=== PATIENT | male | born 1970 | race African-American/Black ===

== ENCOUNTER 2016-07-21 22:12 | Emergency (ER) | payer OTHER ==
[2016-07-22 00:52] LABS: Hematocrit 42 % (42-52); Mean Corpuscular HGB Conc 33 g/dl (31-36); Mean Corpuscular Hemoglobin 31 pg (27-31); Mean Corpuscular Volume 94 fL (80-94); Mean Platelet Volume 9 um3 (7.4-10.4); Red Cell Distribution Width 13 % (10.5-15); White Blood Count 13.8 10^3/ul (3.5-10.8)
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
[2016-07-22 01:03] LABS: BUN/Creatinine Ratio 15.6 (8-20); Calcium 8.9 mg/dL (8.6-10.3); EGFR African American 175.5 (>60); EGFR Non-African American 136.5 (>60); Potassium 3.7 mmol/L (3.5-5.0)
[2016-07-22 01:18] VITALS: BP 136/70
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
--- NOTE | 2016-07-22 07:00 | RAD ---
INDICATION: Bilateral rib injury. TECHNIQUE: 7 views of both ribs were obtained. FINDINGS: There is a fracture of the lateral aspect of the right eighth rib. No other fractures are seen. IMPRESSION: FRACTURE OF THE LATERAL RIGHT EIGHTH RIB.
== END 2016-07-22 01:19 | disposition short-term general hospital (02) ==
LOC: ED 22:12
DX: S02.32XA Fracture of orbital floor, left side, initial encounter for closed fracture (principal); S02.402A Zygomatic fracture, unspecified side, initial encounter for closed fracture; W10.9XXA Fall (on) (from) unspecified stairs and steps, initial encounter; Y93.9 Activity, unspecified; Y92.9 Unspecified place or not applicable; R60.0 Localized edema; F17.210 Nicotine dependence, cigarettes, uncomplicated; F19.90 Other psychoactive substance use, unspecified, uncomplicated
CPT/HCPCS: 36415; 70450; 70486; 71110; 80048; 80320; 85025; 99283; G0480

== ENCOUNTER → 2016-10-23 15:58 | Emergency (ER) | payer SELFPAY ==
[~2016-10-23 15:58] MED LIST: HYDROcodone/ACETAMIN 5-325 MG* 1 TAB PO ONE
[2016-10-23 16:02] VITALS: BP 111/68
--- NOTE | 2016-10-23 17:03 | ED ---
Lower Extremity - HPI Summary HPI Summary: Pt here w/ Rt knee pain and swelling x 1 week. Started while at work one day - on his feet at [employer] all shift. Tried icing, elevating and resting over the weekend w/o much relief. Reports he took 7 tablets of ibuprofen this morning w/ o relief of pain. No previous injury/surgery here. Denies numbness, tingling, weakness and no fever, chills, N/V/D. He can move his hip and ankle w/o difficulty. Pain is worse w/ flexion and weight bearing. No h/o gout and denies lifestyle habits that may cause this. - History of Current Complaint Chief Complaint: EDExtremityLower Stated Complaint: RT KNEE PAIN Time Seen by Provider: 10/23/16 16:20 Hx Obtained From: Patient Pain Intensity: 10 - Allergies/Home Medications Allergies/Adverse Reactions: Allergies Allergy/AdvReac Type Severity Reaction Status Date / Time No Known Allergies Allergy Verified 10/23/16 16:01 PMH/Surg Hx/FS Hx/Imm Hx Previously Healthy: Yes Endocrine/Hematology History: Denies: Hx Anticoagulant Therapy, Hx Blood Disorders, Hx Diabetes, Hx Thyroid Disease, Hx Unexplained Bleeding Cardiovascular History: Denies: Hx Hypertension Respiratory History: Denies: Hx Asthma, Hx Chronic Obstructive Pulmonary Disease (COPD) GI History: Denies: Hx Ulcer Musculoskeletal History: Denies: Hx Arthritis Neurological History: Denies: Other Neuro Impairments/Disorders - lt ocipital head ache for 1 week Psychiatric History: Reports: Hx of Violent Episodes Against Others, Hx Substance Abuse - cocaine, marijuana Denies: Hx Eating Disorder Infectious Disease History: Denies: Hx Clostridium Difficile, Hx Hepatitis, Hx Human Immunodeficiency Virus (HIV), Hx of Known/Suspected MRSA, Hx Shingles, Hx Tuberculosis, Hx Known/ Suspected VRE, Hx Known/Suspected VRSA, History Other Infectious Disease, Traveled Outside the [place] in Last 30 Days - Family History Known Family History: Positive: Other - Family history of alcohol abuse. - Social History Occupation: Employed Part-time - [employer] Lives: With Family - roommate Alcohol Use: Weekly Hx Substance Use: Yes Substance Use Type: Reports: Cocaine - did not report this today, Marijuana - recreationally Hx Tobacco Use: Yes Smoking Status (MU): Current Every Day Smoker Review of Systems Constitutional: Negative Negative: Fever, Chills, Fatigue Negative: Chest Pain Negative: Shortness Of Breath Negative: Vomiting, Nausea Positive: no symptoms reported Musculoskeletal: Other - see HPI Skin: Negative Negative: Rash, Bruising Neurological: Negative Negative: Weakness, Paresthesia, Numbness Psychological: Normal All Other Systems Reviewed And Are Negative: Yes Physical Exam Triage Information Reviewed: Yes Vital Signs On Initial Exam: Initial Vitals Temp Pulse Resp BP Pulse Ox 96.7 F 84 14 111/68 97 10/23/16 16:01 10/23/16 16:01 10/23/16 16:01 10/23/16 16:01 10/23/16 16:01 Vital Signs Reviewed: Yes Appearance: Positive: Well-Appearing, No Pain Distress - sleeping on stretcher - had to wake pt - he is startle d upon waking and reports " I'm in pain", Well- Nourished Skin: Positive: Warm, Dry - no erythema, no ecchymosis, no fever to touch Rt knee which is edematous compared to Lt - he does not have exquisite tenderness Head/Face: Positive: Normal Head/Face Inspection Eyes: Positive: EOMI ENT: Positive: Hearing grossly normal Respiratory/Lung Sounds: Positive: Breath Sounds Present Cardiovascular: Positive: Normal, RRR, Pulses are Symmetrical in both Upper and Lower Extremities Musculoskeletal: Positive: Limited @ - Rt knee limited flexion d/t pain/ swelling - modified special tests - pain w/ varus and valgus stress tests - gaurded bettina, could not perform ant/post drawer d/t inability to flex that far, modified Albina w/o pain/clicking; Lt knee w/ laxity in general; Ankle and hip w/ FROM w/o pain or restriction Neurological: Positive: Normal, Sensory/Motor Intact, Alert, Oriented to Person Place, Time, CN Intact II-III Psychiatric: Positive: Normal Diagnostics - Vital Signs Vital Signs Temp Pulse Resp BP Pulse Ox 10/23/16 16:01 96.7 F 84 14 111/68 97 - Laboratory Lab Statement: Any lab studies that have been ordered have been reviewed, and results considered in the medical decision making process. Re-Evaluation - Re-Evaluation First Eval Change: Improved Lower Extremity Course/Dx - Course Course Of Treatment: The source of pt's knee effusion is not definitive today however there is a possibilty he may have torn a ligament or cartilage triggering swelling. Pt does not present w/ any s/sx of infection/gout so labs were not ordered today. Reviewed danger s/sx of when to return to ED. Otherwise , f/u w/ ortho. - Diagnoses Provider Diagnoses: Effusion, right knee Discharge - Discharge Plan Condition: Stable Disposition: HOME Prescriptions: HYDROcodone/ACETAMIN 5-325 MG* [[place] 5-325 TAB*] 1 tab PO Q6H PRN #20 tab MDD 4 PRN Reason: Pain Ibuprofen TAB* [Motrin TAB* 800 MG] 800 mg PO Q8HR #20 tab Patient Education Materials: Swollen Knee Joint (ED), Crutch Instructions (ED) , Knee Immobilizer (ED) Referrals: Hemanth Sánchez MD [Medical Doctor] -
--- NOTE | 2016-10-23 17:57 | RAD ---
INDICATION: Right knee pain and swelling. TECHNIQUE: 4 views of the right knee were obtained. FINDINGS: The bones are normal alignment. There is a large joint effusion present. No fracture is seen. Joint spaces appear maintained. There is mild osteoarthritic change in the patellofemoral compartment. IMPRESSION: LARGE JOINT EFFUSION.
== END | disposition home or self-care (01) ==
LOC: ED 15:58
DX: M25.461 Effusion, right knee (principal); M25.561 Pain in right knee; F14.90 Cocaine use, unspecified, uncomplicated; F12.90 Cannabis use, unspecified, uncomplicated; F17.210 Nicotine dependence, cigarettes, uncomplicated
CPT/HCPCS: 99282

== ENCOUNTER 2016-12-04 11:31 | Emergency (ER) | payer MEDICAID ==
[2016-12-04] MEDS ORDERED: Ketorolac INJ* 30 MG/ML 1 ML VIAL IV PUSH ONE (12:15)
--- NOTE | 2016-12-04 12:23 | ED ---
Lower Extremity - HPI Summary HPI Summary: Pt here w/ return of Rt knee pain and swelling x 2 days. No acute injury. Denies fever, chills, N/V/D, dysuria, visual change. Worse w/ movement and weight bearing. Although better as rest, still has constant pain. Has not tried anything for pain yet. Was seen here last month - XR report w/o acute findings (mild arthritic change, effusion) and dx'd w/ effusion of unknown origin although arthritis flair up vs. ligament/cartigale strain were suspected given events leading up to incident. He was given short course of norco as he had already tried many ibuprofen pills w/o relief. He was aslo advised to f/u w/ orthopedics which he did not. Admits he just started with [facility] for ETOH and marijuana. Denies h/o opioid abuse. Requesting norco for pain today. - History of Current Complaint Chief Complaint: EDExtremityLower Stated Complaint: RT KNEE PAIN/SWELLING Time Seen by Provider: 12/04/16 11:56 Hx Obtained From: Patient Pain Intensity: 10 - Allergies/Home Medications Allergies/Adverse Reactions: Allergies Allergy/AdvReac Type Severity Reaction Status Date / Time No Known Allergies Allergy Verified 10/23/16 16:01 PMH/Surg Hx/FS Hx/Imm Hx Previously Healthy: Yes Endocrine/Hematology History: Denies: Hx Anticoagulant Therapy, Hx Blood Disorders, Hx Diabetes, Hx Thyroid Disease, Hx Unexplained Bleeding, Autoimmune Disease Cardiovascular History: Denies: Hx Hypertension Respiratory History: Denies: Hx Asthma, Hx Chronic Obstructive Pulmonary Disease (COPD) GI History: Denies: Hx Ulcer Musculoskeletal History: Reports: Hx Arthritis - Rt knee (mild OA) Denies: Hx Rheumatoid Arthritis, Hx Back Problems, Hx Bursitis, Hx Fibromyalgia, Hx Gout, Hx Orthopedic Injury, Hx of Fracture(s), Hx Joint Replacement Neurological History: Denies: Other Neuro Impairments/Disorders - lt ocipital head ache for 1 week Psychiatric History: Reports: Hx of Violent Episodes Against Others, Hx Substance Abuse - cocaine, marijuana Denies: Hx Eating Disorder Infectious Disease History: No Infectious Disease History: Denies: Hx Clostridium Difficile, Hx Hepatitis, Hx Human Immunodeficiency Virus (HIV), Hx of Known/Suspected MRSA, Hx Shingles, Hx Tuberculosis, Hx Known/ Suspected VRE, Hx Known/Suspected VRSA, History Other Infectious Disease, Traveled Outside the [place] in Last 30 Days - Family History Known Family History: Positive: Other - Family history of alcohol abuse. Family History: Family history of alcohol abuse. - Social History Lives: Nursing Home - [facility] Alcohol Use: Occasionally Alcohol Amount: last drank 1 week ago Hx Substance Use: Yes Substance Use Type: Reports: Cocaine, Marijuana - currently in [facility] for marijuana abuse Substance Use Comment - Amount & Last Used: hx marijuana Hx Tobacco Use: Yes Smoking Status (MU): Current Every Day Smoker Review of Systems Constitutional: Negative Negative: Fever, Chills, Fatigue Eyes: Negative Negative: Photophobia, Blurred Vision, Diplopia ENT: Negative Negative: Sore Throat Cardiovascular: Negative Negative: Chest Pain Respiratory: Negative Negative: Shortness Of Breath Gastrointestinal: Negative Negative: Vomiting Positive: no symptoms reported Musculoskeletal: Other - see HPI Skin: Negative Negative: Rash, Bruising Neurological: Negative Negative: Weakness, Paresthesia, Numbness Positive: Anxious All Other Systems Reviewed And Are Negative: Yes Physical Exam Triage Information Reviewed: Yes Vital Signs On Initial Exam: Initial Vitals Temp Pulse Resp BP Pulse Ox 98.2 F 78 17 124/81 100 12/04/16 11:32 12/04/16 11:32 12/04/16 11:32 12/04/16 11:32 12/04/16 11:32 Vital Signs Reviewed: Yes Appearance: Positive: Well-Appearing, Pain Distress Skin: Positive: Warm, Dry - no erythema, no ecchymosis, no streaking, no fever to touch Head/Face: Positive: Normal Head/Face Inspection Eyes: Positive: EOMI, Conjunctiva Clear ENT: Positive: Hearing grossly normal Respiratory/Lung Sounds: Positive: Breath Sounds Present Cardiovascular: Positive: RRR, Pulses are Symmetrical in both Upper and Lower Extremities Musculoskeletal: Positive: Strength/ROM Intact - Rt, Limited @ - Rt knee limited d/t pain; no laxity appreciated Neurological: Positive: Normal, Sensory/Motor Intact, Alert, Oriented to Person Place, Time, CN Intact II-III Psychiatric: Positive: Anxious - [place] Coma Scale Coma Scale Total: 15 Diagnostics - Vital Signs Vital Signs Temp Pulse Resp BP Pulse Ox 12/04/16 11:32 98.2 F 78 17 124/81 100 - Laboratory Result Diagrams: 12/04/16 12:35 12/04/16 12:35 Lab Statement: Any lab studies that have been ordered have been reviewed, and results considered in the medical decision making process. Lower Extremity Course/Dx - Course Course Of Treatment: Pt here w/ return of Rt knee pain and swelling. No clinical or labratory signs of infection. Appears to be having an arthritis flair up w/ possible swelling d/t this and/or injury to ligament/cartilage ( exam gaurded d/t pain). He was advised to f/u w/ orthoepdics last time, but reports he felt better so did not follow-up. Advise again today, he call ortho to schedule an appoinmtent for further w/u. Crutches and knee immobilizer provided today to prevent worsening of injury. - Diagnoses Provider Diagnoses: Right knee pain Discharge - Discharge Plan Condition: Stable Disposition: HOME Prescriptions: Meloxicam 7.5 mg PO DAILY WITH MEAL #14 tab Patient Education Materials: Knee Pain (ED), Swollen Joint (ED) Referrals: Salvador Rangel MD [Medical Doctor] - Additional Instructions: The definitive cause of your knee pain was not identified again today. However, you do not appear to have infection or gout. It is again suspected you are having an arthritis flair up and/or injury of internal connective tissue causing swelling and pain. Rest, elevate and compress with DOMINICK wrap and immobilizer Non-weight bearing until cleared by orthopedics You may use heat in the morning to aid in stretching - you may also ice for pain , swelling Take meloxicam, a pain medication for your current condition, daily as directed. Do not take with other NSAID's (ie. advil, ibuprofen, aleve, naproxen) Follow-up with orthopedics this week - call today to schedule an appointment. *If you develop fever, chills, nausea, vomiting, numbness, weakness, return to ED
[2016-12-04 12:44] LABS: Hematocrit 42 % (42-52); Hemoglobin 14.4 g/dl (14.0-18.0); Mean Corpuscular HGB Conc 35 g/dl (31-36); Mean Corpuscular Hemoglobin 33 pg (27-31); Mean Corpuscular Volume 96 fL (80-94); Mean Platelet Volume 8 um3 (7.4-10.4); Red Blood Count 4.34 10^6/ul (4.0-5.4); Red Cell Distribution Width 13 % (10.5-15); White Blood Count 8.3 10^3/ul (3.5-10.8)
[2016-12-04 12:58] LABS: Albumin 3.9 g/dL (3.2-5.2); BUN/Creatinine Ratio 14.9 (8-20); C Reactive Protein 3.48 mg/L (< 5.00); Calcium 9.3 mg/dL (8.6-10.3); EGFR African American 147.8 (>60); EGFR Non-African American 114.9 (>60); Potassium 3.9 mmol/L (3.5-5.0); Total Bilirubin 0.7 mg/dL (0.2-1.0); Total Protein 6.9 g/dL (6.4-8.9); Uric Acid 7.5 mg/dL (4.4-7.6)
[2016-12-04 13:23] VITALS: BP 121/69
== END 2016-12-04 13:28 | disposition home or self-care (01) ==
LOC: ED 11:31
DX: M25.561 Pain in right knee (principal)
CPT/HCPCS: 36415; 80053; 83605; 84550; 85025; 86140; 99282; J1885

== ENCOUNTER 2016-12-09 12:32 | Emergency (ER) | payer MEDICAID ==
[2016-12-09] MEDS ORDERED: traMADol TAB* 50 MG PO ONE (13:19)
--- NOTE | 2016-12-09 13:47 | RAD ---
INDICATION: Pain and swelling. COMPARISON: None TECHNIQUE: Duplex interrogation of the right lowerextremity was performed. FINDINGS: Deep veins: The common femoral, great saphenous, profunda femoris, proximal, mid, and distal deep femoral, popliteal, posterior tibial, and peroneal veins are patent. There is normal compressibility, augmentation, and phasic flow. Superficial veins: There are no findings of superficial thrombophlebitis. Popliteal fossa:There is no evidence of a popliteal cyst. Soft tissues: There is a small amount of edema in the popliteal fossa but no localized fluid collection to suggest a popliteal cyst. IMPRESSION: No evidence of deep venous thrombosis
[2016-12-09 14:09] LABS: Hematocrit 44 % (42-52); Hemoglobin 15.2 g/dl (14.0-18.0); Mean Corpuscular HGB Conc 34 g/dl (31-36); Mean Corpuscular Hemoglobin 33 pg (27-31); Mean Corpuscular Volume 97 fL (80-94); Mean Platelet Volume 9 um3 (7.4-10.4); Red Cell Distribution Width 14 % (10.5-15); White Blood Count 7.9 10^3/ul (3.5-10.8)
[2016-12-09 14:33] LABS: Albumin 4.1 g/dL (3.2-5.2); BUN/Creatinine Ratio 13.7 (8-20); C Reactive Protein 10.46 mg/L (< 5.00); Calcium 9.5 mg/dL (8.6-10.3); EGFR African American 150.1 (>60); EGFR Non-African American 116.7 (>60); Globulin 3.4 g/dL (2-4); Potassium 4.6 mmol/L (3.5-5.0); Total Bilirubin 0.4 mg/dL (0.2-1.0); Total Protein 7.5 g/dL (6.4-8.9); Uric Acid 5.3 mg/dL (4.4-7.6)
[2016-12-09 14:50] LABS: Erythrocyte Sed Rate 10 mm/Hr (0-14)
[2016-12-09 15:35] VITALS: BP 122/77
[2016-12-12 23:48] LABS: B garinii/B afzelii PCR Negative (Negative); B mayonii PCR Negative (Negative)
--- NOTE | 2016-12-15 12:32 | ED ---
Param Betancur Nilda, scribed for Dawit Martinez MD on 12/09/16 at 1458 . Lower Extremity - HPI Summary HPI Summary: Patient is a 46 y.o. M presenting to [facility] with a chief complaint of severe chronic R knee and calf pain and swelling that has been present for two months but was exacerbated yesterday. Pain is rated 8/10 severity. Symptoms are aggravated by palpation and alleviated by nothing. Patient reports swollen lymph nodes. He denies L knee swelling. Patient found a tick on his RLE a few months ago. - History of Current Complaint Chief Complaint: EDExtremityLower Stated Complaint: RT KNEE PAIN Time Seen by Provider: 12/09/16 13:13 Hx Obtained From: Patient Onset of Pain: Days Onset/Duration: Still Present - Pain and swelling of right knee present for two month but exacerbated yesterday. Severity Currently: Severe Pain Intensity: 8 Pain Scale Used: 0-10 Numeric Timing: Constant Location: Is Discrete @ - Right Knee and calf Associated Signs And Symptoms: Positive: Swelling Aggravating Factor(s): Other - palpation Alleviating Factor(s): Nothing - Allergies/Home Medications Allergies/Adverse Reactions: Allergies Allergy/AdvReac Type Severity Reaction Status Date / Time No Known Allergies Allergy Verified 10/23/16 16:01 PMH/Surg Hx/FS Hx/Imm Hx Endocrine/Hematology History: Denies: Hx Anticoagulant Therapy, Hx Blood Disorders, Hx Diabetes, Hx Thyroid Disease, Hx Unexplained Bleeding Cardiovascular History: Denies: Hx Hypertension Respiratory History: Denies: Hx Asthma, Hx Chronic Obstructive Pulmonary Disease (COPD) GI History: Denies: Hx Ulcer Musculoskeletal History: Reports: Hx Arthritis - Rt knee (mild OA) Denies: Hx Rheumatoid Arthritis, Hx Back Problems, Hx Bursitis, Hx Fibromyalgia, Hx Gout, Hx Orthopedic Injury Neurological History: Denies: Other Neuro Impairments/Disorders - lt ocipital head ache for 1 week Psychiatric History: Reports: Hx of Violent Episodes Against Others, Hx Substance Abuse - cocaine, marijuana Denies: Hx Eating Disorder Infectious Disease History: No Infectious Disease History: Denies: Hx Clostridium Difficile, Hx Hepatitis, Hx Human Immunodeficiency Virus (HIV), Hx of Known/Suspected MRSA, Hx Shingles, Hx Tuberculosis, Hx Known/ Suspected VRE, Hx Known/Suspected VRSA, History Other Infectious Disease, Traveled Outside the [place] in Last 30 Days - Family History Known Family History: Positive: Other - Family history of alcohol abuse. Negative: Hypertension, Diabetes Family History: Family history of alcohol abuse. - Social History Alcohol Use: Occasionally Alcohol Amount: last drank 1 week ago Hx Substance Use: Yes Substance Use Type: Reports: Cocaine, Marijuana - currently in [facility] for marijuana abuse Substance Use Comment - Amount & Last Used: hx marijuana Hx Tobacco Use: Yes Smoking Status (MU): Current Every Day Smoker Review of Systems Positive: Other - Swollen neck lymph nodes. Negative: Fever, Chills Negative: Erythema Negative: Sore Throat Negative: Chest Pain Negative: Shortness Of Breath, Cough Negative: Abdominal Pain, Vomiting, Nausea Negative: dysuria, hematuria Positive: Other - right knee/calf pain and swelling, tick RLE (months ago); negative left knee swelling. Negative: Myalgia, Edema Negative: Rash Neurological: Other - negative dizziness All Other Systems Reviewed And Are Negative: Yes Physical Exam - Summary Physical Exam Summary: Constitutional: Well-developed, Well-nourished, Alert. (-) Distressed Skin: Warm, Dry HENT: Normocephalic; Atraumatic Eyes: Conjunctiva normal Neck: Musculoskeletal ROM normal neck. (-) JVD, (-) Stridor, (-) Tracheal deviation Cardio: Rhythm regular, rate normal, Heart sounds normal; Intact distal pulses; The pedal pulses are 2+ and symmetric. Radial pulses are 2+ and symmetric. (-) Murmur Pulmonary/Chest wall: Effort normal. (-) Respiratory distress, (-) Wheezes, (-) Rales Abd: Soft, (-) Tenderness, (-) Distension, (-) Guarding, (-) Rebound Musculoskeletal: Moderate joint right knee effusion with reduced ROM and no erythema or warmth Lymph: (-) Cervical adenopathy Neuro: Alert, Oriented x3 Psych: Mood and affect Normal Triage Information Reviewed: Yes Vital Signs On Initial Exam: Initial Vitals Temp Pulse Resp BP Pulse Ox 98.4 F 78 17 115/70 100 12/09/16 12:44 12/09/16 12:44 12/09/16 12:44 12/09/16 12:44 12/09/16 12:44 Vital Signs Reviewed: Yes Diagnostics - Vital Signs Vital Signs Temp Pulse Resp BP Pulse Ox 12/09/16 12:44 98.4 F 78 17 115/70 100 - Laboratory Result Diagrams: 12/09/16 13:56 12/09/16 13:56 Lab Statement: Any lab studies that have been ordered have been reviewed, and results considered in the medical decision making process. - Additional Comments Diagnostic Additional Comments: Venous Doppler Study, per radiologist, reveals no evidence of deep venous thrombosis. ED Physician reviewed report and agrees. Lower Extremity Course/Dx - Course Assessment/Plan: Patient is a 46 y.o. M presenting to [facility] with a chief complaint of severe chronic R knee and calf pain and swelling that has been present for two months but was exacerbated yesterday. Pain is rated 8/10 severity. Symptoms are aggravated by palpation and alleviated by nothing. Patient reports swollen lymph nodes. He denies L knee swelling. Patient found a tick on his RLE a few months ago. Venous Doppler Study, per radiologist, reveals no evidence of deep venous thrombosis. ED Physician reviewed report and agrees. Patient declined therapeutic/diagnostic join aspiration. No signs of septic arthritis evident. Symptoms likely due to osteoarthritis. Patient was discharged with a diagnosis of chronic right knee effusion. He was instructed to follow up with Dr. Mcbride (ortho) in 2-3 days, apply ice and wrap knee, and use crutches. Patient understands and agrees with plan. - Diagnoses Provider Diagnoses: chronic right knee effusion Discharge - Discharge Plan Condition: Stable Disposition: HOME Prescriptions: traMADol TAB* [Ultram*] 50 mg PO Q6HR PRN #15 tab MDD 4 PRN Reason: Pain Scale 6-10 Patient Education Materials: Swollen Knee Joint (ED) Referrals: Lalita Mcbride MD [Medical Doctor] - 2 Days Additional Instructions: Follow up with ortho 2-3 days. Apply ice and wrap knee. Use crutches. RETURN TO THE EMERGENCY DEPARTMENT FOR CHANGING OR WORSENING SYMPTOMS. The documentation as recorded by the Param yuen Nilda accurately reflects the service I personally performed and the decisions made by me, Dawit Martinez MD.
== END 2016-12-09 15:34 | disposition home or self-care (01) ==
LOC: ED 12:32
DX: M25.461 Effusion, right knee (principal); M79.89 Other specified soft tissue disorders; F17.210 Nicotine dependence, cigarettes, uncomplicated
CPT/HCPCS: 36415; 80053; 84550; 85027; 85652; 86140; 87476; 87798; 99282; A9270-GY

== ENCOUNTER 2016-12-16 09:27 | Emergency (ER) | payer MEDICAID ==
[2016-12-16 09:38] VITALS: BP 129/73
--- NOTE | 2016-12-16 10:04 | UC ---
Lower Extremity/Ankle HPI - HPI Summary HPI Summary: Patient presents with complaints of three day onset right leg pain, and swelling. He states his calf is rock hard. He states he was seen at the [facility] three times and was discharged home from there on NSAIDS and tramadol. He states that his pain is not controlled and he has more swelling. He denies any prolonged periods of immobility, surgeries, cancer, DVT/PE, blood dyscrasis. Denies any chest pain, dyspnea, trauma, fever. - History of Current Complaint Chief Complaint: UCLowerExtremity Stated Complaint: KNEE PAIN Time Seen by Provider: 12/16/16 09:42 Hx Obtained From: Patient Onset/Duration: Gradual Onset, Lasting Days Severity Initially: Severe Severity Currently: Severe Pain Scale Used: 0-10 Numeric - 10/10 Aggravating Factor(s): Standing, Ambulation Alleviating Factor(s): Nothing Able to Bear Weight: Yes - Risk Factors Gout Risk Factors: Negative DVT Risk Factors: Negative Septic Arthritis Risk Factor: Negative - Allergies/Home Medications Allergies/Adverse Reactions: Allergies Allergy/AdvReac Type Severity Reaction Status Date / Time No Known Allergies Allergy Verified 12/16/16 09:33 PMH/Surg Hx/FS Hx/Imm Hx Previously Healthy: Yes Other History Of: Negative For: Anticoagulant Therapy - Surgical History Surgical History: None - Family History Known Family History: Positive: None - reviewed & noncontributory, Other - Family history of alcohol abuse. Negative: Hypertension, Diabetes Family History: Family history of alcohol abuse. - Social History Occupation: Employed Full-time Lives: Alone Alcohol Use: Occasionally Alcohol Amount: last drank 1 week ago Substance Use Type: Cocaine, Marijuana Substance Use Comment - Amount & Last Used: hx marijuana Smoking Status (MU): Current Every Day Smoker Amount Used/How Often: 1 PPD - Immunization History Most Recent Tetanus Shot: UTD Review of Systems Constitutional: Negative Skin: Negative Eyes: Negative ENT: Negative Respiratory: Negative Cardiovascular: Negative Gastrointestinal: Negative Genitourinary: Negative Motor: Negative Neurovascular: Negative Musculoskeletal: Arthralgia, Calf Tenderness, Decreased ROM, Edema, Other: Neurological: Negative Psychological: Negative All Other Systems Reviewed And Are Negative: Yes Physical Exam Triage Information Reviewed: Yes Vital Signs: Initial Vital Signs Temp 99 F 12/16/16 09:34 Pulse 97 12/16/16 09:34 Resp 16 12/16/16 09:34 BP 129/73 12/16/16 09:34 Pulse Ox 100 12/16/16 09:34 Eye Exam: Normal ENT Exam: Normal Dental Exam: Normal Neck exam: Normal Neck: Positive: 1 Respiratory Exam: Normal Cardiovascular Exam: Normal Abdominal Exam: Normal Musculoskeletal Exam: Normal Musculoskeletal: Positive: Strength Limited @, ROM Limited @, Edema @, Other: - PP+. rubor with dependency, pallor with elevation. neuro;intact. Neurological Exam: Normal Psychological Exam: Normal Skin Exam: Normal Lower Extremity Course/Dx - Course Course Of Treatment: Patient presents with complaints of three day onset leg pain and swelling. He was seen at [facility] on 12/09/16 and had a US which I reviewed and was read as negative for DVT. Based on the clinical findings suggestive of venous HTN he was referred to [facility] ER where a vascular consult could be obtained today. He was neruovasc intact in the department and at the time of discharge. He was told to go to the ER now. - Differential Dx/Diagnosis Differential Diagnosis/HQI/PQRI: Other - venous htn Provider Diagnoses: venous htn Discharge - Discharge Plan Condition: Stable Disposition: [facility]
== END 2016-12-16 10:57 | disposition short-term general hospital (02) ==
LOC: UCEAST 09:27
DX: I10 Essential (primary) hypertension (principal); F14.10 Cocaine abuse, uncomplicated; F17.200 Nicotine dependence, unspecified, uncomplicated
CPT/HCPCS: 99211; G0463

== ENCOUNTER → 2016-12-17 12:30 | Emergency (ER) | payer MEDICAID ==
[~2016-12-17 12:30] MED LIST changes: +Cephalexin CAP* 500 MG PO ONE; -HYDROcodone/ACETAMIN 5-325 MG* 1 TAB PO ONE; +oxyCODONE/Acetamin 5/325 MG* TAB PO ONE
[2016-12-17 16:29] VITALS: BP 130/82
--- NOTE | 2016-12-17 17:43 | ED ---
Joy Betancur SooYoung, scribed for Iglesia Hull MD on 12/17/16 at 1701 . Lower Extremity - HPI Summary HPI Summary: A 46 y/o M presents to ED with c/o RLE calf pain onset today. Pt was seen at [facility] ED yesterday for his RLE edema, he had bloodwork, US to r/o DVT done; Dx : ruptured Jane's cyst at posterior knee. He's had knee swelling for past two months, and calf and ankle pain/swelling for past two weeks. Today, his R calf is "on fire" and erythematous and warm to touch. Associated sx: diaphoresis. Denies fever, RLE numbness but it is becoming more difficult to move his toes. He's scheduled to see [facility] orthopedics in two days. Pt took Meloxicam, Naproxen, Hydrocodone today. Aggravating factors: ambulating. NKA. - History of Current Complaint Chief Complaint: EDExtremityLower Stated Complaint: RIGHT KNEE PAIN Time Seen by Provider: 12/17/16 16:59 Hx Obtained From: Patient, Medical Records Onset of Pain: Prior to Arrival Onset/Duration: Still Present Severity Initially: Moderate Severity Currently: Severe Pain Intensity: 8 Pain Scale Used: 0-10 Numeric Timing: Constant Location: Is Diffuse - RLE knee to foot Character Of Pain: Burning - "on fire" Associated Signs And Symptoms: Positive: Swelling, Redness, Other - warm to touch, diaphoretic, ankle pain, decreased ROM of R foot Aggravating Factor(s): Ambulation Able to Bear Weight: Yes - with pain - Allergies/Home Medications Allergies/Adverse Reactions: Allergies Allergy/AdvReac Type Severity Reaction Status Date / Time No Known Allergies Allergy Verified 12/16/16 09:33 PMH/Surg Hx/FS Hx/Imm Hx Previously Healthy: No Endocrine/Hematology History: Denies: Hx Anticoagulant Therapy, Hx Blood Disorders, Hx Diabetes, Hx Thyroid Disease, Hx Unexplained Bleeding Cardiovascular History: Denies: Hx Hypertension Respiratory History: Denies: Hx Asthma, Hx Chronic Obstructive Pulmonary Disease (COPD) GI History: Denies: Hx Ulcer Musculoskeletal History: Reports: Hx Arthritis - Rt knee (mild OA) Denies: Hx Rheumatoid Arthritis, Hx Back Problems, Hx Bursitis, Hx Fibromyalgia, Hx Gout, Hx Orthopedic Injury Neurological History: Reports: Hx CVA - in 2009, Hx Headaches Psychiatric History: Reports: Hx of Violent Episodes Against Others, Hx Substance Abuse - cocaine, marijuana Denies: Hx Eating Disorder Infectious Disease History: No Infectious Disease History: Denies: Hx Clostridium Difficile, Hx Hepatitis, Hx Human Immunodeficiency Virus (HIV), Hx of Known/Suspected MRSA, Hx Shingles, Hx Tuberculosis, Hx Known/ Suspected VRE, Hx Known/Suspected VRSA, History Other Infectious Disease, Traveled Outside the [place] in Last 30 Days - Family History Known Family History: Positive: Other - Family history of alcohol abuse. Negative: Hypertension, Diabetes Family History: Family history of alcohol abuse. - Social History Occupation: Unemployed - OTHER Lives: With Family Alcohol Use: Occasionally Alcohol Amount: last drank 1 week ago Hx Substance Use: Yes Substance Use Type: Reports: Cocaine, Marijuana Substance Use Comment - Amount & Last Used: hx marijuana Hx Tobacco Use: Yes Smoking Status (MU): Current Every Day Smoker Amount Used/How Often: 1 PPD Review of Systems Positive: Skin Diaphoresis. Negative: Fever Positive: Myalgia - RLE pain at calf and ankle, Decreased ROM - R foot, Edema - RLE from knee to foot. Negative: Other - neg: RLE numbness Positive: Other - R calf is erythematous and warm to touch All Other Systems Reviewed And Are Negative: Yes Physical Exam Triage Information Reviewed: Yes Vital Signs On Initial Exam: Initial Vitals Temp Pulse Resp BP Pulse Ox 97.8 F 97 14 97/76 96 12/17/16 12:33 12/17/16 12:33 12/17/16 12:33 12/17/16 12:33 12/17/16 12:33 Vital Signs Reviewed: Yes Appearance: Positive: Well-Appearing, No Pain Distress Skin: Positive: Warm, Skin Color Reflects Adequate Perfusion, Dry Head/Face: Positive: Normal Head/Face Inspection Eyes: Positive: EOMI, JORGE LUIS ENT: Positive: Normal ENT inspection Neck: Positive: Supple, Nontender Respiratory/Lung Sounds: Positive: Clear to Auscultation, Breath Sounds Present Cardiovascular: Positive: RRR Abdomen Description: Positive: Nontender, Soft Musculoskeletal: Positive: Edema Right, Other - RLE swelling from knee down; erythema below knee that blanches all the way down; no pain to passive range of motion with ankle flexion, planter flexion; dorsalis pedis and posterior tibial pulses are good Neurological: Positive: Normal, Sensory/Motor Intact, Alert, Oriented to Person Place, Time Psychiatric: Positive: Affect/Mood Appropriate Diagnostics - Vital Signs Vital Signs Temp Pulse Resp BP Pulse Ox 12/17/16 16:05 97.6 F 98 14 130/82 99 12/17/16 12:33 97.8 F 97 14 97/76 96 - Laboratory Lab Statement: Any lab studies that have been ordered have been reviewed, and results considered in the medical decision making process. Lower Extremity Course/Dx - Course Course Of Treatment: Pt is a 46 y/o M presenting with RLE calf pain onset today. Pt was seen at [facility] ED yesterday for his RLE edema, he had bloodwork, US to r/o DVT done; Dx: ruptured Jane's cyst at posterior knee. He's had knee swelling for past two months, and calf and ankle pain/swelling for past two weeks. Today, his R calf is "on fire" and erythematous and warm to touch. Associated sx: diaphoresis. Denies fever, RLE numbness but it is becoming more difficult to move his toes. He's scheduled to see [facility] orthopedics in two days. Pt took Meloxicam, Naproxen, Hydrocodone today. PATIENT DECLINED IV/BLOOD WORK/ ULTRASOUND. 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 THE REDNESS IN THE RLE IS NEW TODAY. WILL START KEFLEX FOR POSSIBLE CELLULITIS. ASPHALT DAUBER PAIN TO PASSIVE ROM. POSITIVE DP/PT PULSES, CAP REFILL LESS THAN 2 SECOND; NO COMPARTMENT SYNDROME AT THIS TIME. NO CRITICAL CARE TIME. WILL RETURN IF WORSE. - Diagnoses Provider Diagnoses: Edema of right lower extremity, Cellulitis of leg, right Discharge - Discharge Plan Condition: Stable Disposition: HOME Prescriptions: Cephalexin CAP* [Keflex CAP*] 500 mg PO QID #37 cap Patient Education Materials: Cellulitis (ED), Leg Edema (ED) Forms: *Work Release Referrals: Alphonso Núñez MD [Primary Care Provider] - Additional Instructions: FOLLOW UP WITH ORTHOPEDICS ON 12/19/16 SCHEDULED. RETURN TO THE EMERGENCY DEPARTMENT FOR ANY WORSENING OF YOUR CONDITION; PAIN, YOUR LEG/FOOT GO NUMB, THERE IS DECREASED BLOOD FLOW IN THE FOOT/LEG, FEVER, YOU FEEL ILL OR QUESTIONS OR CONCERNS. Keep your leg elevated, slightly above heart level, as we discussed. Use packs as needed. Please return to the ED if you experience worsening symptoms such as fever, decreased range of motion of ankle, increased pain. The documentation as recorded by the Joy yuen SooYoung accurately reflects the service I personally performed and the decisions made by me, Iglesia Hull MD.
== END | disposition home or self-care (01) ==
LOC: ED 12:30
DX: L03.115 Cellulitis of right lower limb (principal); M25.561 Pain in right knee; R60.0 Localized edema; F17.210 Nicotine dependence, cigarettes, uncomplicated
CPT/HCPCS: 99282; A9270-GY

== ENCOUNTER 2017-01-26 12:07 | Emergency (ER) | payer MEDICAID ==
[2017-01-26 12:26] VITALS: BP 131/79
--- NOTE | 2017-01-26 14:16 | UC ---
Ear Complaint HPI - HPI Summary HPI Summary: Patient presents with history of cerumen impaction. He states his hearing has decreased and he thinks his ears are full of wax. He denies any ear pain, or drainage. He denies any ear trauma. - History of Current Complaint Chief Complaint: UCEar Stated Complaint: EARS CLOGGED Time Seen by Provider: 01/26/17 12:36 Hx Obtained From: Patient Onset/Duration: Gradual Onset, Lasting Weeks Severity Initially: Mild Severity Currently: Moderate Aggravating Factors: Nothing Associated Signs/Symptoms: Positive: Hearing Loss - Allergies/Home Medications Allergies/Adverse Reactions: Allergies Allergy/AdvReac Type Severity Reaction Status Date / Time No Known Allergies Allergy Verified 01/26/17 12:26 Home Medications: Home Medications NK [No Home Medications Reported] 01/26/17 [History Confirmed 01/26/17] PMH/Surg Hx/FS Hx/Imm Hx Previously Healthy: Yes Other History Of: Negative For: Anticoagulant Therapy - Surgical History Surgical History: None - Family History Known Family History: Positive: None - reviewed & noncontributory, Other - Family history of alcohol abuse. Negative: Hypertension, Diabetes Family History: Family history of alcohol abuse. - Social History Occupation: Unemployed Lives: Alone Alcohol Use: Occasionally Alcohol Amount: last drank 1 week ago Substance Use Type: None Substance Use Comment - Amount & Last Used: hx marijuana Smoking Status (MU): Never Smoked Tobacco Amount Used/How Often: 1 PPD - Immunization History Most Recent Influenza Vaccination: none Most Recent Tetanus Shot: UTD Review of Systems Constitutional: Negative Skin: Negative Eyes: Negative ENT: Other - feels like full of wax Respiratory: Negative Cardiovascular: Negative Gastrointestinal: Negative Genitourinary: Negative Motor: Negative Neurovascular: Negative Musculoskeletal: Negative Neurological: Negative Psychological: Negative All Other Systems Reviewed And Are Negative: Yes Physical Exam Triage Information Reviewed: Yes Appearance: Well-Appearing Vital Signs: Initial Vital Signs Temp 97.7 F 01/26/17 12:24 Pulse 79 01/26/17 12:24 Resp 16 01/26/17 12:24 BP 131/79 01/26/17 12:24 Pulse Ox 99 01/26/17 12:24 Vital Signs Reviewed: Yes Eyes: Positive: Conjunctiva Clear ENT Exam: Normal ENT: Positive: Pharynx normal, TMs normal - bilateral cerumen impaction Dental Exam: Normal Neck exam: Normal Neck: Positive: 1 Respiratory Exam: Normal Cardiovascular Exam: Normal Abdominal Exam: Normal Musculoskeletal Exam: Normal Skin Exam: Normal Ear Complaint Course/Dx - Course Course Of Treatment: Patient presents with cerumen impcation, ears were lavaged and hearing restored. Patient reported no pain before or after and was discharged home in stable condition. - Differential Dx/Diagnosis Differential Diagnosis/HQI/PQRI: Cerumen Impaction Provider Diagnoses: cerumen impaction Discharge - Discharge Plan Condition: Stable Disposition: HOME Patient Education Materials: Cerumen Impaction (ED) Referrals: Alphonso Núñez MD [Primary Care Provider] -
== END 2017-01-26 14:05 | disposition home or self-care (01) ==
LOC: UCEAST 12:07
DX: H61.23 Impacted cerumen, bilateral (principal)
CPT/HCPCS: 99211; G0463

== ENCOUNTER 2017-06-25 18:48 | Emergency (ER) | payer OTHER ==
--- NOTE | 2017-06-25 19:49 | RAD ---
INDICATION: Left knee pain. TECHNIQUE: 4 views of the left knee were obtained. FINDINGS: The bones are normal alignment. There is a joint effusion present. No fracture is seen. Joint spaces appear maintained. IMPRESSION: JOINT EFFUSION.
[2017-06-25 20:11] LABS: ABS Basophils 0 10^3/ul (0-0.2); ABS Eosinophils 0.1 10^3/ul (0-0.6); ABS Monocytes 0.7 10^3/ul (0-0.8); ABS Nucleated RBC 0 10^3/ul; Eosinophil % 0.9 % (0-6); Hematocrit 43 % (42-52); Hemoglobin 14.7 g/dl (14.0-18.0); Lymphocyte % 22.8 % (25-47); Mean Corpuscular HGB Conc 35 g/dl (31-36); Mean Corpuscular Hemoglobin 33 pg (27-31); Mean Corpuscular Volume 94 fL (80-94); Mean Platelet Volume 8.3 um3 (7.4-10.4); Nucleated Red Blood Cells % 0.1; Platelet Count 172 10^3/ul (150-450); Red Blood Count 4.52 10^6/ul (4.0-5.4); Red Cell Distribution Width 14 % (10.5-15); White Blood Count 8.8 10^3/ul (3.5-10.8)
[2017-06-25] MEDS ORDERED: oxyCODONE/Acetamin 5/325 MG* TAB PO ONE (20:20)
[2017-06-25 20:22] LABS: EGFR Non-African American 116.7 (>60)
--- NOTE | 2017-06-25 20:23 | RAD ---
INDICATION: Left calf and knee pain. COMPARISON: There are no prior studies available for comparison. TECHNIQUE: Multiple real-time, color flow and Doppler tracings of the left lower extremity were obtained. FINDINGS: The common femoral, femoral, profunda femoral and popliteal veins all demonstrate normal compressibility, augmentation with compression and phasic response with respiration. 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 The posterior tibial and peroneal veins demonstrate normal compressibility and augmentation with compression. IMPRESSION: NO EVIDENCE FOR DEEP VENOUS THROMBOSIS.
[2017-06-25] MEDS ORDERED: Lidocaine 1%* 5 ML VIAL INJ ONE (20:38)
[2017-06-25] MEDS ORDERED: Ketorolac INJ* 30 MG/ML 1 ML VIAL IV PUSH ONE (20:45)
[2017-06-25] MEDS ORDERED: cefTRIAXone(*) 1 GM in NS 0.9% 50 ML* 50 ML IVPB ONE (21:06)
--- NOTE | 2017-06-25 21:34 | ED ---
Lower Extremity - HPI Summary HPI Summary: 46-year-old male presents with left knee pain for the past 2 days. He denies any injury. He admits to increased swelling in his left knee. He states pain is greatest when ambulates. He denies any fevers or spreading redness. He states this happen on his right knee before and was a Jane's cyst. He admits to some pain in his calf muscle. He denies any history of blood clots. He denies any chest pain or shortness breath. He denies any recent tick bite. He denies any chills or fatigue. He is not diabetic. He denies any history of IV drug use. - History of Current Complaint Chief Complaint: EDExtremityLower Stated Complaint: LT KNEE PAIN/SWELLING Time Seen by Provider: 06/25/17 19:11 Pain Intensity: 10 - Allergies/Home Medications Allergies/Adverse Reactions: Allergies Allergy/AdvReac Type Severity Reaction Status Date / Time No Known Allergies Allergy Verified 01/26/17 12:26 PMH/Surg Hx/FS Hx/Imm Hx Endocrine/Hematology History: Denies: Hx Anticoagulant Therapy, Hx Blood Disorders, Hx Diabetes, Hx Thyroid Disease, Hx Unexplained Bleeding Cardiovascular History: Denies: Hx Hypertension Respiratory History: Denies: Hx Asthma, Hx Chronic Obstructive Pulmonary Disease (COPD) GI History: Denies: Hx Ulcer Musculoskeletal History: Reports: Hx Arthritis - Rt knee (mild OA) Denies: Hx Rheumatoid Arthritis, Hx Back Problems, Hx Bursitis, Hx Fibromyalgia, Hx Gout, Hx Orthopedic Injury Neurological History: Reports: Hx CVA - in 2009, Hx Headaches Denies: Other Neuro Impairments/Disorders - lt ocipital head ache for 1 week Psychiatric History: Reports: Hx of Violent Episodes Against Others, Hx Substance Abuse - cocaine, marijuana Denies: Hx Eating Disorder Infectious Disease History: No Infectious Disease History: Denies: Hx Clostridium Difficile, Hx Hepatitis, Hx Human Immunodeficiency Virus (HIV), Hx of Known/Suspected MRSA, Hx Shingles, Hx Tuberculosis, Hx Known/ Suspected VRE, Hx Known/Suspected VRSA, History Other Infectious Disease, Traveled Outside the [place] in Last 30 Days - Family History Known Family History: Positive: None - reviewed & noncontributory, Other - Family history of alcohol abuse. Negative: Hypertension, Diabetes Family History: Family history of alcohol abuse. - Social History Alcohol Use: Occasionally Alcohol Amount: last drank 1 week ago Hx Substance Use: Yes Substance Use Type: Reports: None Substance Use Comment - Amount & Last Used: hx marijuana Hx Tobacco Use: Yes Smoking Status (MU): Never Smoked Tobacco Amount Used/How Often: 1 PPD Review of Systems Negative: Fever Negative: Chest Pain Negative: Shortness Of Breath Positive: Edema - left knee All Other Systems Reviewed And Are Negative: Yes Physical Exam Triage Information Reviewed: Yes Vital Signs On Initial Exam: Initial Vitals Temp Pulse Resp BP Pulse Ox 98 F 83 16 137/109 99 06/25/17 18:52 06/25/17 18:52 06/25/17 18:52 06/25/17 18:52 06/25/17 18:52 Vital Signs Reviewed: Yes Appearance: Positive: Well-Appearing Skin: Positive: Warm, Dry Head/Face: Positive: Normal Head/Face Inspection Eyes: Positive: Normal, Conjunctiva Clear Respiratory/Lung Sounds: Positive: Clear to Auscultation, Breath Sounds Present Cardiovascular: Positive: Normal, RRR Musculoskeletal: Positive: Limited @ - Left knee with pain with passive range of motion, Edema Left - Knee, Other - Positive ballottement, good pulses, sensation grossly intact. Negative: Deniz Sign Left Diagnostics - Vital Signs Vital Signs Temp Pulse Resp BP Pulse Ox 06/25/17 20:58 16 06/25/17 18:52 98 F 83 16 137/109 99 - Laboratory Lab Results: Lab Results 06/25/17 06/25/17 Range/Units 19:55 19:55 WBC 8.8 (3.5-10.8) 10^3/ul RBC 4.52 (4.0-5.4) 10^6/ul Hgb 14.7 (14.0-18.0) g/dl Hct 43 (42-52) % MCV 94 (80-94) fL MCH 33 H (27-31) pg MCHC 35 (31-36) g/dl RDW 14 (10.5-15) % Plt Count 172 (150-450) 10^3/ul MPV 8.3 (7.4-10.4) um3 Neut % (Auto) 67.6 (38-83) % Lymph % (Auto) 22.8 L (25-47) % Desha % (Auto) 8.2 H (0-7) % Eos % (Auto) 0.9 (0-6) % Baso % (Auto) 0.5 (0-2) % Absolute Neuts (auto) 6.0 (1.5-7.7) 10^3/ul Absolute Lymphs (auto) 2.0 (1.0-4.8) 10^3/ul Absolute Monos (auto) 0.7 (0-0.8) 10^3/ul Absolute Eos (auto) 0.1 (0-0.6) 10^3/ul Absolute Basos (auto) 0 (0-0.2) 10^3/ul Absolute Nucleated RBC 0 10^3/ul Nucleated RBC % 0.1 ESR Pending Sodium 138 L (139-145) mmol/L Potassium 4.0 (3.5-5.0) mmol/L Chloride 105 (101-111) mmol/L Carbon Dioxide 26 (22-32) mmol/L Anion Gap 7 (2-11) mmol/L BUN 12 (6-24) mg/dL Creatinine 0.73 (0.67-1.17) mg/dL Est GFR ( Amer) 150.1 (>60) Est GFR (Non-Af Amer) 116.7 (>60) BUN/Creatinine Ratio 16.4 (8-20) Glucose 97 (70-100) mg/dL Calcium 9.5 (8.6-10.3) mg/dL Total Bilirubin 0.50 (0.2-1.0) mg/dL AST 19 (13-39) U/L ALT 10 (7-52) U/L Alkaline Phosphatase 86 (34-104) U/L C-Reactive Protein 23.24 H (< 5.00) mg/L Total Protein 7.4 (6.4-8.9) g/dL Albumin 4.3 (3.2-5.2) g/dL Globulin 3.1 (2-4) g/dL Albumin/Globulin Ratio 1.4 (1-3) Result Diagrams: 06/25/17 19:55 06/25/17 19:55 Lab Statement: Any lab studies that have been ordered have been reviewed, and results considered in the medical decision making process. - Radiology knee Xray Interpretation: Positive (See Comments) - Joint effusion Radiology Interpretation Completed By: Radiologist - Ultrasound No standard instances Ultrasound Interpretation: No Acute Changes Ultrasound Interpretation Completed By: Radiologist Re-Evaluation - Re-Evaluation First Eval Re-Evaluation Time: 21:31 Comment: discussed with dr mcclellan and he recommends tapping the joint. discussed with patient and patient is deathly afraid of needles and refuses to have joint tapped. discussed risks of not tapping as potentially is septic. Lower Extremity Course/Dx - Course Course Of Treatment: 46-year-old male presents with left knee pain for the past 2 days. He denies any injury. He admits to increased swelling in his left knee. He states pain is greatest when ambulates. He denies any fevers or spreading redness. He states this happen on his right knee before and was a Jane's cyst. He admits to some pain in his calf muscle. He denies any history of blood clots. He denies any chest pain or shortness breath. He denies any recent tick bite. He denies any chills or fatigue. He is not diabetic. He denies any history of IV drug use. On exam left tenderness with positive ballottement. Has pain past range of motion. No erythema or warmth to the touch left knee. White blood cell count normal. CRP elevated. Discussed with Dr. Mcclellan and that we should tap the joint due to no trauma and pain with passive ROM. Patient refuses joint aspiration. Discuss why wanted to do such as to rule out a septic joint the patient still refused after discussion of risk. we'll give dose of antibiotics and have follow-up with orthopedic. Warned of signs return to the ED for. patient understands agrees with plan. - Diagnoses Differential Diagnosis/HQI/PQRI: Positive: Arthritis, DVT, Septic Arthritis Provider Diagnoses: Effusion of knee joint, left Discharge - Sign-Out/Discharge Documenting (check all that apply): Discharge - Discharge Plan Condition: Good Disposition: HOME Prescriptions: Cephalexin CAP* [Keflex CAP*] 500 mg PO BID #20 cap Patient Education Materials: Swollen Knee Joint (ED) Referrals: Alphonso Núñez MD [Primary Care Provider] - Salvador Rangel MD [Medical Doctor] - Additional Instructions: Take keflex twice a day for 10 days Ice, elevate Take ibuprofen every 6 hours for swelling Follow up with ortho within 2 days, call tomorrow for appointment Return to ED if develop redness to joint, fever, or any new or worsening symptoms - Billing Disposition and Condition Condition: GOOD Disposition: HOME
[2017-06-25] MEDS ORDERED: I buprofen 600 MG #6 TAB PREPK 600 MG TAB PO ONE (21:41)
[2017-06-25 22:04] VITALS: BP 131/77
== END 2017-06-25 22:03 | disposition home or self-care (01) ==
LOC: ED 18:48
DX: M25.462 Effusion, left knee (principal); Z86.73 Personal history of transient ischemic attack (TIA), and cerebral infarction without residual deficits
CPT/HCPCS: 36415; 80053; 85025; 85652; 86140; 86617; 86618; 87040; 96360; 96374; 99283; A9270-GY; J0696; J1885

== ENCOUNTER 2017-07-03 11:35 | Emergency (ER) | payer OTHER | END 2017-07-03 13:26 | disposition left against medical advice (07) | LOC: UCEAST 11:35 | DX: M25.569 Pain in unspecified knee (principal); Z53.21 Procedure and treatment not carried out due to patient leaving prior to being seen by health care provider ==

== ENCOUNTER 2018-04-17 11:49 | Emergency (ER) | payer SELFPAY ==
--- NOTE | 2018-04-17 12:01 | ED ---
Substance Abuse/Use - HPI Summary HPI Summary: This pt is a 47 y/o male presenting to [facility] via EMS s/p respiratory arrest and possible overdose. EMS reports the pt was found outside the back patio of [facility]. Per EMS, bystanders report pt was given 20 mg of Narcan by [facility]. On EMS arrival to scene, EMS note pt was on respiratory arrest with copious amount of emesis. Per EMS, pt had unknown amount of alcohol with marijuana laced with spice according to bystanders. EMS bagged the pt for a couple of minutes and EMS administered 2 mg of Narcan with effect. Pt with O2 sat of 98-100%, sinus tachycardia at 140 bpm, 116/61 blood pressure, and an IV on left forearm. HPI IS LIMITED DUE TO LEVEL 5 CAVEAT - pt is obtunded - History Of Current Complaint Stated Complaint: OVERDOSE Hx Obtained From: EMS Hx From Patient Unobtainable Due To: Other - pt is obtunded Ingestion History: Type/Name Of Drug - "laced" marijuana and alcohol, Amount Ingested - unknown amount Overdose Characteristics: Oral Timing Of Abuse: Binge Use Severity Currently: Moderate Character: Stuporous Aggravating Factor(s): Nothing Alleviating Factor(s): Other - Narcan Associated Signs And Symptoms: Agitated, Altered Mental Status, Intentional Ingestion - Allergies/Home Medications Allergies/Adverse Reactions: Allergies Allergy/AdvReac Type Severity Reaction Status Date / Time No Known Allergies Allergy Verified 01/26/17 12:26 Home Medications: Home Medications Unobtainable 04/17/18 [History Confirmed 04/17/18] PMH/Surg Hx/FS Hx/Imm Hx Endocrine/Hematology History: Denies: Hx Anticoagulant Therapy, Hx Blood Disorders, Hx Diabetes, Hx Thyroid Disease, Hx Unexplained Bleeding Cardiovascular History: Denies: Hx Hypertension Respiratory History: Denies: Hx Asthma, Hx Chronic Obstructive Pulmonary Disease (COPD) GI History: Denies: Hx Ulcer Musculoskeletal History: Reports: Hx Arthritis - Rt knee (mild OA) Denies: Hx Rheumatoid Arthritis, Hx Back Problems, Hx Bursitis, Hx Fibromyalgia, Hx Gout, Hx Orthopedic Injury Neurological History: Reports: Hx CVA - in 2008, Hx Headaches Denies: Other Neuro Impairments/Disorders - lt ocipital head ache for 1 week Psychiatric History: Reports: Hx of Violent Episodes Against Others, Hx Substance Abuse - cocaine, marijuana Denies: Hx Eating Disorder Infectious Disease History: Denies: Hx Clostridium Difficile, Hx Hepatitis, Hx Human Immunodeficiency Virus (HIV), Hx of Known/Suspected MRSA, Hx Shingles, Hx Tuberculosis, Hx Known/ Suspected VRE, Hx Known/Suspected VRSA, History Other Infectious Disease - Family History Known Family History: Positive: Other - Family history of alcohol abuse. Negative: Hypertension, Diabetes Family History: Family history of alcohol abuse. - Social History Alcohol Use: Occasionally Alcohol Amount: last drank 1 week ago Hx Substance Use: Yes Substance Use Type: Reports: None Substance Use Comment - Amount & Last Used: hx marijuana Hx Tobacco Use: Yes Smoking Status (MU): Never Smoked Tobacco Amount Used/How Often: 1 PPD Review of Systems - ROS Summary Review of Systems Summary: ROS IS LIMITED DUE TO LEVEL 5 CAVEAT - pt is obtunded Negative: Fever Respiratory: Other - POS: s/p respiratory arrest Positive: Vomiting Neurological: Other - POS: obtunded, stuporous All Other Systems Reviewed And Are Negative: No Physical Exam - Summary Physical Exam Summary: VITAL SIGNS: Reviewed. GENERAL: Patient is a well-developed and nourished male who is very obtunded and agitated. HEAD AND FACE: No signs of trauma. No ecchymosis, hematomas or skull depressions. No sinus tenderness. EYES: Pupils are reactive EARS: Hearing grossly intact. Ear canals and tympanic membranes are within normal limits. MOUTH: Oropharynx within normal limits. NECK: Supple, trachea is midline, no adenopathy, no JVD, no carotid bruit, no c- spine tenderness, neck with full ROM. CHEST: Symmetric, no tenderness at palpation LUNGS: Clear to auscultation bilaterally. No wheezing or crackles. CVS: Tachycardic rate and rhythm, S1 and S2 present, no murmurs or gallops appreciated. ABDOMEN: Soft, non-tender. No signs of distention. No rebound, no guarding, and no masses palpated. Bowel sounds are normal. EXTREMITIES: FROM in all major joints, no edema, no cyanosis or clubbing. NEURO: Pt is obtunded. No acute neurological deficits. Speech is normal and follows commands. SKIN: Dry and warm Triage Information Reviewed: Yes Vital Signs On Initial Exam: Initial Vitals Temp Pulse Resp BP Pulse Ox 97.5 F 131 15 127/70 96 04/17/18 11:54 04/17/18 11:54 04/17/18 11:54 04/17/18 11:54 04/17/18 11:54 Vital Signs Reviewed: Yes Completion Of Physical Exam Limited Due To: Level 5 - pt is obtunded Diagnostics - Laboratory Result Diagrams: 04/17/18 12:09 04/17/18 12:09 Lab Statement: Any lab studies that have been ordered have been reviewed, and results considered in the medical decision making process. - Radiology Chest XR Radiology Interpretation Completed By: Radiologist Summary of Radiographic Findings: IMPRESSION: No active cardiopulmonary disease. Dr. Cardoza has reviewed this report. - CT Brain CT CT Interpretation Completed By: Radiologist Summary of CT Findings: IMPRESSION: There is no evidence of intracranial mass or hemorrhage. Dr. Cardoza has reviewed this report. - EKG 12:04 Cardiac Rate: Tachycardia - at 124 bpm EKG Rhythm: Sinus Tachycardia EKG Comparison: No Significant Change - compared to 04/19/15. Summary of EKG Findings: No ST elevation Course/Dx - Course Assessment/Plan: Blood work without any significant abnormality except for WBCs of 11.5, potassium level 3.3, glucose 102, lactic acid 4.1, creatinine kinase is 231, serum alcohol is 315. In the ED course the patient was given IV fluids. At this point the patient is much more calm and resting comfortable in the stretcher. Patient also will be given potassium chloride. Head CT impression: No evidence of intracranial mass or hemorrhage. Chest x-ray impression: No active Pulmonary disease. Urine toxicology is only positive for cannabinoids. Therefore I believe that the patient was not taking any type of opioids. After approximately 8 hours the patient is alert and oriented 3, the patient is sober, the patient is ambulating without any difficulty or ataxia. The patient is eating and drinking without any nausea or vomiting, therefore the patient will be discharged home with follow-up from his primary care physician. Patient is hemodynamically stable, alert and oriented 3. - Diagnoses Differential Diagnosis/HQI/PQRI: Positive: Alcohol Abuse, Anxiety, Drug Withdrawal Provider Diagnoses: Alcohol intoxication Discharge - Sign-Out/Discharge Documenting (check all that apply): Patient Departure - Discharge home Patient Received Moderate/Deep Sedation with Procedure: No - Discharge Plan Condition: Stable Disposition: HOME Patient Education Materials: Alcohol Intoxication (ED) Referrals: Alphonso Núñez MD [Primary Care Provider] - Additional Instructions: FOLLOW UP WITH YOUR PRIMARY CARE PROVIDER IN 2-3 DAYS. RETURN TO THE ED FOR ANY NEW OR WORSENING SYMPTOMS. - Billing Disposition and Condition Condition: STABLE Disposition: Home - Attestation Statements Document Initiated by Patricia: Yes Documenting Scribe: Kylee Saenz Provider For Whom Cristianoibhong is Documenting (Include Credential): Antwon Cardoza MD Scribe Attestation: IKylee, scribed for Antwon Cardoza MD on 04/19/18 at 2030. Scribe Documentation Reviewed: Yes Provider Attestation: The documentation as recorded by the Kylee yuen accurately reflects the service I personally performed and the decisions made by me, Antwon Cardoza MD Status of Scribe Document: Viewed
[2018-04-17 12:24] LABS: ABS Basophils 0.1 10^3/ul (0-0.2); ABS Eosinophils 0.1 10^3/ul (0-0.6); ABS Lymphocytes 3.3 10^3/ul (1.0-4.8); ABS Nucleated RBC 0 10^3/ul; Eosinophil % 0.7 %; Hematocrit 42 % (42-52); Mean Corpuscular HGB Conc 34 g/dl (31-36); Mean Corpuscular Hemoglobin 32 pg (27-31); Mean Corpuscular Volume 95 fL (80-94); Mean Platelet Volume 8.4 fL (7.4-10.4); Nucleated Red Blood Cells % 0; Platelet Count 196 10^3/ul (150-450); Red Blood Count 4.36 10^6/ul (4.00-5.40); Red Cell Distribution Width 13 % (10.5-15); White Blood Count 11.5 10^3/ul (3.5-10.8)
[2018-04-17 12:40] LABS: ALT 18 U/L (7-52); AST 28 U/L (13-39); Albumin 4.2 g/dL (3.2-5.2); Albumin/Globulin Ratio 1.6 (1-3); Alkaline Phosphatase 62 U/L (34-104); Anion Gap 11 mmol/L (2-11); Blood Urea Nitrogen 8 mg/dL (6-24); CO2 Carbon Dioxide 25 mmol/L (22-32); Calcium 8.6 mg/dL (8.6-10.3); Chloride 103 mmol/L (101-111); Creatine Kinase 231 U/L (10-223); EGFR African American 140.6 (>60); EGFR Non-African American 116.2 (>60); Globulin 2.6 g/dL (2-4); Glucose 102 mg/dL (70-100); Potassium 3.3 mmol/L (3.5-5.0); Sodium 139 mmol/L (135-145); Total Protein 6.8 g/dL (6.4-8.9)
[2018-04-17] MEDS ORDERED: NS 0.9% 1000 ML** 1,000 ML IV ONE (12:44)
[2018-04-17 12:47] LABS: Acetaminophen < 15 mcg/mL; Alcohol 315 mg/dL (<10); Salicylate < 2.50 mg/dL (<30)
[2018-04-17 13:02] LABS: TSH (Thyroid Stimulating Horm) 0.78 mcIU/mL (0.34-5.60)
[2018-04-17] MEDS ORDERED: Potassium Chlor TAB* 20 MEQ TAB.ER PO ONE (13:35)
[2018-04-17 13:54] LABS: Magnesium 1.9 mg/dL (1.9-2.7)
[2018-04-17 17:24] LABS: Urine Appearance Clear; Urine Bilirubin Negative (Negative); Urine Blood Negative (Negative); Urine Color Yellow; Urine Glucose Negative (Negative); Urine Ketones Trace (Negative); Urine Nitrite Negative (Negative); Urine Protein Negative (Negative); Urine Urobilinogen Negative (Negative)
[2018-04-17 17:45] LABS: Barbiturates Urine Screen None Detected (None Detect); Benzodiazepine Urine Screen None Detected (None Detect); Urine Cannabinoids Screen Presumptive Positive (None Detect)
[2018-04-17 20:22] VITALS: BP 117/67
== END 2018-04-17 20:23 | disposition home or self-care (01) ==
LOC: ED 11:49
DX: F10.129 Alcohol abuse with intoxication, unspecified (principal); R41.82 Altered mental status, unspecified; R11.10 Vomiting, unspecified; Z86.73 Personal history of transient ischemic attack (TIA), and cerebral infarction without residual deficits
CPT/HCPCS: 36415; 70450; 71045; 80053; 80307; 80320; 80329; 81003; 82550; 83605; 83735; 84443; 85025; 93005; 96360; 99284; A9270-GY; G0480